=== PATIENT | male | born 2000 | race Caucasian/White ===

== ENCOUNTER 2021-07-13 00:28 | Emergency (ER) | payer OTHER ==
[~2021-07-13] VITALS: Ht 175.3 cm; Wt 77.9 kg
[2021-07-13 00:28] VITALS: BP 105/62
--- NOTE | 2021-07-13 00:30 | PHYS DOC ---
Past History Past Medical History: Anxiety General Adult HPI: HPI: ".. I am having a lot of anxiety.. to point I causing me to have a headache.. 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 " ..." That s got me all stress out..." Patient is a 21 year old male who presents with above hx and complaints aniety and tension headache.. Patient denies any suicidal ideation patient denies any history of recent travel. No specific ill contacts. Patient is up-to-date with vaccinations. Has received 2 Covid vaccinations. Patient normally healthy. Does have some history of anxiety. Normally follows with Dr. Banks. No history of suicidal ideation no history of homicidal ideation. No recent hospitalizations. Review of Systems: Review of Systems: Constitutional: Denies fever or chills Eyes: Denies change in visual acuity HENT: Denies nasal congestion or sore throat Respiratory: Denies cough or shortness of breath Cardiovascular: Denies chest pain or edema GI: Denies abdominal pain, nausea, vomiting, bloody stools or diarrhea : Denies dysuria Musculoskeletal: Denies back pain or joint pain Integument: Denies rash Neurologic: Complaints off tension headache,. Denies focal weakness or sensory changes Endocrine: Denies polyuria or polydipsia Lymphatic: Denies swollen glands Psychiatric: Complains of anxiety anxiety Family History: Family History: Noncontributory to presentation Current Medications: Current Meds: See nursing for home meds Allergies: Allergies: Allergic to penicillins Physical Exam: PE: Constitutional: Well developed, well nourished, no acute distress, non-toxic appearance. [] HENT: Normocephalic, atraumatic, bilateral external ears normal, oropharynx moist, no oral exudates, nose normal. [] Eyes: PERRLA, EOMI, conjunctiva normal, no discharge. [] Neck: Normal range of motion, no tenderness, supple, no stridor. [] Cardiovascular:Heart rate regular rhythm, no murmur [] Lungs & Thorax: Bilateral breath sounds clear to auscultation [] Abdomen: Bowel sounds normal, soft, no tenderness, no masses, no pulsatile masses. [] Skin: Warm, dry, no erythema, no rash. [] Back: No tenderness, no CVA tenderness. [] Extremities: No tenderness, no cyanosis, no clubbing, ROM intact, no edema. [] Neurologic: Alert and oriented X 3, normal motor function, normal sensory function, no focal deficits noted. [] DTRs +2 patella and brachial. Search Advertising Strategist equal. No drift. Ambulatory without problems Psychologic: Affect normal, judgement normal, mood normal. [] EKG: EKG: Declined by patient [] Radiology/Procedures: Radiology/Procedures: Declined by patient [] Heart Score: C/O Chest Pain: N/A Risk Factors: Risk Factors: DM, Current or recent (<one month) smoker, HTN, HLP, family history of CAD, obesity. Risk Scores: Score 0 - 3: 2.5% MACE over next 6 weeks - Discharge Home Score 4 - 6: 20.3% MACE over next 6 weeks - Admit for Clinical Observation Score 7 - 10: 72.7% MACE over next 6 weeks - Early Invasive Strategies Course & Med Decision Making: Course & Med Decision Making Pertinent Labs and Imaging studies reviewed. (See chart for details) [facility]. Take Tylenol and ibuprofen as needed for pain. Return if any concerns. See PAT evaluation. Impression: 1. Anxiety 2. Tension Headache. [] Dragon Disclaimer: Dragon Disclaimer: This electronic medical record was generated, in whole or in part, using a voice recognition dictation system. Departure Departure: Referrals: TONYA BANKS MD (PCP) Cesar Disclaimer This chart was dictated in whole or in part using Voice Recognition software in a busy, high-work load, and often noisy Emergency Department environment. It may contain unintended and wholly unrecognized errors or omissions. Dragon Disclaimer This chart was dictated in whole or in part using Voice Recognition software in a busy, high-work load, and often noisy Emergency Department environment. It may contain unintended and wholly unrecognized errors or omissions. SILVER LOPEZ MD Jul 13, 2021 00:30
[2021-07-13] MEDS ORDERED: ADDERALL IR PO (01:03)
[2021-07-13] MEDS ORDERED: DEXT20CA7 PO (01:03)
[2021-07-13] MEDS ORDERED: LORazepam 1 MG TABLET PO ONE (02:00)
[2021-07-13] MEDS ORDERED: ACETAMINOPHEN 500 MG TABLET PO ONE (02:00)
== END 2021-07-13 02:37 | disposition home or self-care (01) ==
LOC: ER 00:28
DX: G44.209 Tension-type headache, unspecified, not intractable (principal); F41.9 Anxiety disorder, unspecified; Z88.0 Allergy status to penicillin
CPT/HCPCS: 99283